=== PATIENT | male | born 1995 | race American Indian/Alaskan Native ===

== ENCOUNTER 2021-01-09 06:39 | Emergency (ER) | payer MEDICARE ==
[2021-01-09] MEDS ORDERED: levETIRAcetam 1000 MG/NS 0.75% 1,000 MG/100 ML BAG IV ONE (07:41)
--- NOTE | 2021-01-09 07:47 | Emergency Department Report ---
HPI - General Chief Complaint: Seizure Time Seen by Provider: 01/09/21 07:29 - HPI HPI: Room 17 The patient is a 25-year-old male present with a chief complaint of seizure. 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 Patient states he does not know the name of the medication he is supposed to take. Patient reportedly had a seizure at home and also had a brief episode with EMS where his eyes reportedly deviated and he had lipsmacking for several seconds. No medication was given. In the ED the patient states he came to the emergency department disease felt short of breath for the past 2 hours. Patient states he feels a little better now but still feels short of breath. Patient denies history of fever or cough. Patient states his last seizure before today was approximately 1 month ago ED Past Medical Hx - Past Medical History Hx Seizures: Yes (Traumatic brain injury) Hx Psychiatric Treatment: Yes - Surgical History Past Surgical History?: No - Family History Family history: no significant - Social History Smoking Status: Never Smoker Substance Use Type: None (Denies illicit drug use), Alcohol (Occasional) - Medications Home Medications: Home Medications Medication Instructions Recorded Confirmed Last Taken Type Albuterol Mdi (or & Nicu Only) 2 puff IH QID PRN #8.5 gram 01/09/21 Unknown Rx [ProAir HFA Inhaler] levETIRAcetam [Keppra] 500 mg PO BID #90 udc 01/09/21 Unknown Rx ED Review of Systems ROS: Stated complaint: POSS SEIZURE ACTIVITY Other details as noted in HPI Constitutional: denies: fever Eyes: denies: eye pain ENT: denies: throat pain Respiratory: shortness of breath. denies: cough Cardiovascular: denies: chest pain Endocrine: no symptoms reported Gastrointestinal: denies: nausea, vomiting Genitourinary: denies: dysuria Musculoskeletal: denies: back pain Neurological: denies: headache Physical Exam - Physical Exam Vital Signs: Vital Signs 01/09/21 07:33 Temperature 99.3 F Pulse Rate 87 Respiratory 15 Rate Blood Pressure 133/98 [Left] O2 Sat by Pulse 99 Oximetry Vital Signs 01/09/21 01/09/21 01/09/21 07:30 07:33 07:46 Temperature 99.3 F Pulse Rate 84 87 87 Respiratory 16 15 10 L Rate Blood Pressure 143/82 Blood Pressure 133/98 [Left] O2 Sat by Pulse 99 99 99 Oximetry 01/09/21 01/09/21 01/09/21 08:00 08:16 08:30 Temperature Pulse Rate 75 75 80 Respiratory 12 16 14 Rate Blood Pressure 143/82 123/70 121/74 Blood Pressure [Left] O2 Sat by Pulse 98 97 96 Oximetry 01/09/21 01/09/21 01/09/21 09:00 09:46 10:16 Temperature Pulse Rate 81 65 56 L Respiratory 17 30 H 18 Rate Blood Pressure 106/58 94/41 103/43 Blood Pressure [Left] O2 Sat by Pulse 98 96 98 Oximetry Physical Exam: GENERAL: The patient is well-developed well-nourished male lying on stretcher not appearing to be in acute distress. [] HEENT: Normocephalic. Atraumatic. Extraocular motions are intact. Strabismus present at times. Patient has moist mucous membranes. NECK: Supple. No meningitic signs are noted. Trachea midline CHEST/LUNGS: Clear to auscultation. There is no respiratory distress noted. HEART/CARDIOVASCULAR: Regular. There is no tachycardia. There is no gallop rub or murmur. ABDOMEN: Abdomen is soft, nontender. Patient has normal bowel sounds. There is no abdominal distention. SKIN: There is no rash. There is no edema. There is no diaphoresis. NEURO: The patient is awake, alert, and oriented. The patient is cooperative. The patient has no focal neurologic deficits. The patient has normal speech. Cranial nerves II through XII grossly intact. GCS 15 MUSCULOSKELETAL: There is no evidence of acute injury. ED Course Vital Signs 01/09/21 07:33 Temperature 99.3 F Pulse Rate 87 Respiratory 15 Rate Blood Pressure 133/98 [Left] O2 Sat by Pulse 99 Oximetry ED Medical Decision Making - Lab Data Result diagrams: 01/09/21 08:17 01/09/21 08:17 Laboratory Tests 01/09/21 01/09/21 01/09/21 08:17 08:17 08:17 WBC 5.5 RBC 4.10 Hgb 12.7 Hct 37.4 MCV 91 MCH 31 MCHC 34 RDW 12.2 L Plt Count 185 Lymph % (Auto) 29.1 [place] % (Auto) 7.3 Eos % (Auto) 0.8 Baso % (Auto) 0.6 Lymph # (Auto) 1.6 [place] # (Auto) 0.4 Eos # (Auto) 0.0 Baso # (Auto) 0.0 Seg Neutrophils % 62.2 Seg Neutrophils # 3.4 D-Dimer < 135.00 Sodium 141 Potassium 4.1 Chloride 103.6 Carbon Dioxide 26 Anion Gap 16 BUN 11 Creatinine 1.0 Estimated GFR > 60 BUN/Creatinine Ratio 11 Glucose 80 Calcium 9.6 Magnesium 1.80 Troponin T < 0.010 NT-Pro-B Natriuret Pep < 5 - EKG Data -: EKG Interpreted by Me EKG shows normal: sinus rhythm Rate: normal - EKG Data When compared to previous EKG there are: previous EKG unavailable Interpretation: other (Early repolarization) - Radiology Data Radiology results: report reviewed (Chest x-ray), image reviewed (Chest x-ray) interpreted by me: Chest x-ray-no definite focal infiltrates, no pneumothorax. No foreign body seen [facility] [address] [place] [address] XRay Report Signed Patient: JACQUES CROSS MR#: [id number] : 1995 Acct:[id number] Age/Sex: 25 / M ADM Date: 01/09/21 Loc: ED Attending Dr: Ordering Physician: FERNY ENGEL MD Date of Service: 01/09/21 Procedure(s): XR chest 1V ap Accession Number(s): [id number] cc: FERNY ENGEL MD Fluoro Time In Minutes: CHEST 1 VIEW INDICATION / CLINICAL INFORMATION: Shortness of breath. COMPARISON: 07/21/2013 FINDINGS: SUPPORT DEVICES: None. HEART / MEDIASTINUM: No significant abnormality. LUNGS / PLEURA: No significant pulmonary or pleural abnormality. No pneumothorax. ADDITIONAL FINDINGS: No significant additional findings. IMPRESSION: 1. No acute findings. No interval change. Signer Name: Leticia Penny MD Signed: 01/09/2021 8:24 AM Workstation Name: [id number] Transcribed By: Dictated By: Leticia Penny MD Electronically Authenticated By: Leticia Penny MD Signed Date/Time: 01/09/21823 DD/ 2 TD/TT: Print Cancel - Differential Diagnosis Seizure, PE, pneumonia, symptomatic anemia Critical care attestation.: If time is entered above; I have spent that time in minutes in the direct care of this critically ill patient, excluding procedure time. ED Disposition Clinical Impression: Seizure Disposition: DC-01 TO HOME OR SELFCARE Is pt being admited?: No Does the pt Need Aspirin: No Condition: Stable Instructions: Epilepsy, [id number] Additional Instructions: Return to the emergency department should you develop worsening symptoms, inability to tolerate food or liquids, high fever or any other concerns Prescriptions: levETIRAcetam [Keppra] 500 mg PO BID #90 udc Albuterol Mdi (or & Nicu Only) [ProAir HFA Inhaler] 2 puff IH QID PRN #8.5 gram PRN Reason: Shortness Of Breath Referrals: PRIMARY CARE,MD [Primary Care Provider] - 3-5 Days TOMAS LAYTON MD [Staff Physician] - 3-5 Days (Dr. Layton is a neurologist. Please follow-up with him for further evaluation) Time of Disposition: 10:28
--- NOTE | 2021-01-09 08:29 | XRay Report ---
CHEST 1 VIEW INDICATION / CLINICAL INFORMATION: Shortness of breath. COMPARISON: 07/21/2013 FINDINGS: SUPPORT DEVICES: None. HEART / MEDIASTINUM: No significant abnormality. LUNGS / PLEURA: No significant pulmonary or pleural abnormality. No pneumothorax. ADDITIONAL FINDINGS: No significant additional findings. IMPRESSION: 1. No acute findings. No interval change. Signer Name: Leticia Penny MD Signed: 01/09/2021 8:24 AM Workstation Name: [id number]
[2021-01-09 09:00] LABS: Basophils % (Auto) 0.6 % (0.0-1.8); Eosinophils % (Auto) 0.8 % (0.0-4.3); Hematocrit 37.4 % (35.5-45.6); Hemoglobin 12.7 gm/dl (11.8-15.2); Lymphocytes # (Auto) 1.6 K/mm3 (1.2-5.4); Lymphocytes % (Auto) 29.1 % (13.4-35.0); Mean Corpuscular HGB Conc 34 % (32-34); Mean Corpuscular Volume 91 fl (84-94); Monocytes # (Auto) 0.4 K/mm3 (0.0-0.8); Monocytes % (Auto) 7.3 % (0.0-7.3); Platelet Count 185 K/mm3 (140-440); Red Cell Distribution Width 12.2 % (13.2-15.2)
[2021-01-09 09:23] LABS: BUN/Creatinine Ratio 11; Blood Urea Nitrogen 11 mg/dL (9-20); Calcium 9.6 mg/dL (8.4-10.2); Hemolysis Index 18
[2021-01-09 10:33] VITALS: BP 105/52
--- NOTE | 2021-01-11 10:37 | Electrocardiograph Report ---
[facility] Test Date: 2021-01-09 Test Time: 07:43:18 Pat Name: JACQUES CROSS Department: Room: Gender: M Operator Engineer: EM : 1995 Requested By: FERNY ENGEL Order Number: [id number] Reading MD: Palmer Wolff Measurements Intervals [place] Rate: 83 P: 55 [place]: 137 QRS: 79 QRSD: 76 T: 58 QT: 337 QTc: 396 Interpretive Statements Sinus rhythm ST elev, probable normal early repol pattern No previous ECG available for comparison Electronically Signed On 01-11-2021 10:37:08 EDT by Palmer Wolff
== END 2021-01-09 10:45 | disposition home or self-care (01) ==
LOC: ED 06:39
DX: R56.9 Unspecified convulsions (principal)
CPT/HCPCS: 36415; 71045; 80048; 83735; 83880; 84484; 85025; 85379; 93005; 96374; 99284; J1953

== ENCOUNTER 2022-03-05 15:49 | Emergency (ER) | payer MEDICARE ==
[2022-03-05] MEDS ORDERED: SODIUM CHLORIDE 0.9% 1000 ML 1,000 ML IV ONE (16:44)
[2022-03-05] MEDS ORDERED: levETIRAcetam 1000 MG/NS 0.75% 1,000 MG/100 ML BAG IV ONE (16:44)
[2022-03-05] MEDS ORDERED: diphenhydrAMINE 50 MG/ML VIAL IV ONE (16:44)
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
--- NOTE | 2022-03-05 17:16 | XRay Report ---
CHEST 1 VIEW INDICATION: fever. COMPARISON: 01/09/2021 FINDINGS: SUPPORT DEVICES: None. HEART: Within normal limits. LUNGS/PLEURA: No acute air space or interstitial disease. ADDITIONAL FINDINGS: None. IMPRESSION: 1. No acute findings. Signer Name: Anant Saldana MD Signed: 03/05/2022 5:12 PM Workstation Name: [id number]
[2022-03-05 17:33] LABS: Basophils # (Auto) 0.1 K/mm3 (0.0-0.1); Basophils % (Auto) 0.9 % (0.0-1.8); Eosinophils % (Auto) 0.2 % (0.0-4.3); Hematocrit 42.9 % (35.5-45.6); Lymphocytes # (Auto) 1.7 K/mm3 (1.2-5.4); Mean Corpuscular HGB Conc 33 % (32-34); Mean Corpuscular Volume 91 fl (84-94); Monocytes # (Auto) 0.6 K/mm3 (0.0-0.8); Platelet Count 201 K/mm3 (140-440); Red Blood Count 4.73 M/mm3 (3.65-5.03); Red Cell Distribution Width 12.2 % (13.2-15.2)
[2022-03-05 18:49] LABS: Alanine Aminotransferase 15 units/L (7-56); BUN/Creatinine Ratio 12; Blood Urea Nitrogen 13 mg/dL (9-20); Calcium 9.9 mg/dL (8.4-10.2); Hemolysis Index 2
[2022-03-05] MEDS ORDERED: ACETAMINOPHEN 325 MG TAB PO ONE (18:52)
[2022-03-05 20:29] VITALS: BP 107/73
--- NOTE | 2022-03-06 10:55 | Electrocardiograph Report ---
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
== END 2022-03-05 20:34 | disposition home or self-care (01) ==
LOC: ED 15:49
DX: G40.909 Epilepsy, unspecified, not intractable, without status epilepticus (principal); F10.20 Alcohol dependence, uncomplicated
CPT/HCPCS: 36415; 71045; 80053; 85025; 93005; 96365; 96375; 99284; J1200; J1953; 80320; 99283; G0480